=== PATIENT | female | born 1955 | race Caucasian/White ===

== ENCOUNTER → 2017-09-23 | Outpatient (CLI) | payer OTHER ==
[2017-09-23 12:46] LABS: HEMATOCRIT 45.6 % (34.6-47.8); HEMOGLOBIN 15.2 g/dL (11.7-16.4); WHITE BLOOD COUNT 5.5 x10^3/uL (3.4-10)
[2017-09-23 12:53] LABS: ASPARTATE AMINO TRANSFERASE 15 U/L (15-37); BLOOD UREA NITROGEN 19 mg/dL (7-18); C-REACTIVE PROTEIN, QUANT 0.32 mg/dL (0.02-0.49)
[2017-09-25 11:52] LABS: RHEUMATOID FACTOR SCREEN NEGATIVE (NEGATIVE)
[2017-09-25 12:05] LABS: ANA SCREEN NEGATIVE (Negative)
== END | disposition home or self-care (01) ==
LOC: CFH 06:38
PROVIDERS: ATTEND Internal Medicine Cardiovascular Disease
DX: I10 Essential (primary) hypertension (principal); E78.5 Hyperlipidemia, unspecified; J44.9 Chronic obstructive pulmonary disease, unspecified; M06.9 Rheumatoid arthritis, unspecified; G89.4 Chronic pain syndrome; Z92.25 Personal history of immunosuppression therapy; F17.210 Nicotine dependence, cigarettes, uncomplicated
CPT/HCPCS: 36415; 80053; 82306; 84443; 84550; 85025; 86038; 86140; 86200; 86430; 86480; 86803; 87340; 93306

== ENCOUNTER 2017-11-06 21:54 | Emergency (ER) | payer OTHER ==
[~2017-11-06] VITALS: Ht 160 cm; Wt 74.2 kg
[2017-11-06] MEDS ORDERED: ONDANSETRON 2MG/ML, 2ML IVPush ONE (22:30)
[2017-11-06] MEDS ORDERED: PLEASE ENTER HEIGHT AND WEIGHT MC SCH (22:30)
[2017-11-06] MEDS ORDERED: PLEASE ENTER ALLERGIES MC SCH (22:30)
[2017-11-06] MEDS ORDERED: SODIUM CHLORIDE 0.9% 1,000ML IVBOLUS ONE (22:30)
[2017-11-06 22:53] LABS: BASOPHILS # (AUTO) 0.01 x10^3/uL (0-0.1); BASOPHILS % (AUTO) 0 % (0-1); EOSINOPHILS % (AUTO) 0 % (1-7); LYMPHOCYTES # (AUTO) 0.78 x10^3/uL (1-3.4); LYMPHOCYTES % (AUTO) 8 % (22-44); MD SCAN; MEAN CORPUSCULAR HEMOGLOBIN 32.3 pg (27.0-34.8); MEAN CORPUSCULAR VOLUME 97.8 fL (80-100); MEAN PLATELET VOLUME 9.2 fL (7.4-10.4); MONOCYTES # (AUTO) 0.23 x10^3/uL (0.2-0.8); MONOCYTES % (AUTO) 2 % (2-9); NEUTROPHILS # (AUTO) 8.77 x10^3/uL (1.8-6.8); NEUTROPHILS % (AUTO) 90 % (42-75); PLATELET COUNT 146 x10^3/uL (130-400); RED BLOOD COUNT 4.69 x10^6/uL (3.82-5.3); RED CELL DISTRIBUTION WIDTH 14.6 % (9.6-15.2)
[2017-11-06] MEDS ORDERED: ONDANSETRON 2MG/ML, 2ML ONE (23:11)
[2017-11-06] MEDS ORDERED: POTASSIUM CHLORIDE 20 MEQ TAB.ER.PRT PO ONE (23:30)
[2017-11-06] MEDS ORDERED: POTASSIUM CHLORIDE 20 MEQ TAB.ER.PRT ONE (23:41)
[2017-11-07] MEDS ORDERED: OXYcodone/APAP 10/325MG TABLET PO ONE (01:00)
[2017-11-07] MEDS ORDERED: OXYcodone/APAP 10/325MG TABLET ONE (01:07)
[2017-11-07 01:44] VITALS: BP 141/74
== END 2017-11-07 01:53 | disposition home or self-care (01) ==
LOC: ED 11-07 01:25
DX: F11.23 Opioid dependence with withdrawal (principal); E87.6 Hypokalemia
CPT/HCPCS: 36415; 70450; 80047; 85025; 93005; 96361; 96374; 99285; J2405; J7030

== ENCOUNTER 2019-05-14 06:11 | Observation (INO) | payer OTHER, MEDICARE ==
[2019-05-11 13:37] LABS: BASOPHILS # (AUTO) 0.07 x10^3/uL (0-0.1); BASOPHILS % (AUTO) 1 % (0-1); EOSINOPHILS # (AUTO) 0.12 x10^3/uL (0-0.4); EOSINOPHILS % (AUTO) 2 % (1-7); LYMPHOCYTES # (AUTO) 2.67 x10^3/uL (1-3.4); LYMPHOCYTES % (AUTO) 34 % (22-44); MD NO; MONOCYTES # (AUTO) 0.69 x10^3/uL (0.2-0.8); MONOCYTES % (AUTO) 9 % (2-9); NEUTROPHILS # (AUTO) 4.39 x10^3/uL (1.8-6.8); NEUTROPHILS % (AUTO) 55 % (42-75); PLATELET COUNT 294 x10^3/uL (130-400); RED BLOOD COUNT 4.15 x10^6/uL (3.82-5.3)
[2019-05-11 13:38] LABS: INTERNATIONAL NORMALIZED RATIO 0.9 (0.93-1.1); PROTHROMBIN TIME 9.5 Seconds (9.6-11.5)
[2019-05-11 13:40] LABS: ALBUMIN 3.8 g/dL (3.4-5.0); ANION GAP 7 mmol/L (5-15); CALCIUM 8.8 mg/dL (8.5-10.1); CHLORIDE 103 mmol/L (98-107)
[2019-05-11 13:43] LABS: ALANINE AMINOTRANSFERASE 21 U/L (12-78); ALKALINE PHOSPHATASE 123 U/L (45-117); BILIRUBIN,TOTAL 0.3 mg/dL (0.2-1.0); CREATININE 0.78 mg/dL (0.55-1.02); TOTAL PROTEIN 6.7 g/dL (6.4-8.2)
[2019-05-11 13:49] LABS: HEMOGLOBIN A1C 5.6 % (4.2-6.3)
[~2019-05-14] VITALS: Ht 162.6 cm; Wt 75.0 kg
[~2019-05-14 06:11] MED LIST: ALBU18HF INH; ATOR10TA9 PO; CARI350T PO; FLUT15.88 NAS; HYDR-3241 PO; HYDROCODONE PO; LISI-167 PO; OMEP-110 PO; OXYC10TA6 PO
[2019-05-14] MEDS: NS + 20MEQ KCL 1,000 ML IV SCH ×2 (06:16→18:36)
[2019-05-14] MEDS ORDERED: TRANEXAMIC ACID 100 MG/ML, 10ML ONE ×2 (06:21)
[2019-05-14] MEDS ORDERED: ROPIvacaine/PF 0.5%, 20 ML ONE (06:21)
[2019-05-14] MEDS ORDERED: KETOROLAC 60 MG/2 ML ONE (06:21)
[2019-05-14] MEDS ORDERED: SODIUM CHLORIDE 0.9% 50 ML ONE (06:21)
[2019-05-14] MEDS ORDERED: VANCOMYCIN 1,000 MG ONE (06:21)
[2019-05-14] MEDS ORDERED: EPINEPHRINE 1 MG/ML, 1ML ONE (06:22)
[2019-05-14] MEDS ORDERED: DIPHENHYDRAMINE 50 MG CAPSULE PO PRN (06:30)
[2019-05-14] MEDS ORDERED: SCOPOLAMINE PATCH, 1.5MG PATCH.TD72 TD ONE (06:30)
[2019-05-14] MEDS ORDERED: ONDANSETRON 4 MG TABLET PO PRN (06:30)
[2019-05-14] MEDS ORDERED: ALBUTEROL SULFATE INH SCH (06:30)
[2019-05-14] MEDS ORDERED: HYDROcodone/APAP 5/325 TABLET PO PRN (06:30)
[2019-05-14] MEDS: CEFAZOLIN PMX 2GM/50ML 50 ML IVPB SCH ×2 (06:30→15:58)
[2019-05-14] MEDS ORDERED: SENNA/DOCUSATE TABLET PO PRN (06:30)
[2019-05-14] MEDS ORDERED: ONDANSETRON 2MG/ML, 2ML IV PRN ×2 (06:30→08:30)
[2019-05-14] MEDS ORDERED: ACETAMINOPHEN 650 MG/20.3 ML UDC PO PRN (06:30)
[2019-05-14] MEDS ORDERED: ZOLPIDEM 5MG TABLET PO PRN (06:30)
[2019-05-14] MEDS ORDERED: MAGNESIUM HYDROXIDE 8%, 30ML UDC PO PRN (06:30)
[2019-05-14] MEDS ORDERED: BISACODYL 10 MG SUPP PR PRN (06:30)
[2019-05-14] MEDS ORDERED: HYDROmorphone 1 MG/ML, 1ML INJ IV PRN (06:30)
[2019-05-14] MEDS ORDERED: ACETAMINOPHEN 500 MG TABLET PO ONE (07:00)
[2019-05-14] MEDS ORDERED: GABAPENTIN 300 MG CAPSULE PO ONE (07:00)
[2019-05-14] MEDS ORDERED: FENTANYL PF 250 MCG/5ML ONE ×2 (07:00→08:06)
[2019-05-14] MEDS: KETOROLAC 30 MG/1 ML IVPush SCH ×3 (07:00→21:01)
[2019-05-14] MEDS: LACTATED RINGERS 1,000 ML IV SCH ×2 (07:30→11:17)
[2019-05-14] MEDS ORDERED: MIDAZOLAM 1 MG/ML, 2ML ONE (07:36)
[2019-05-14] MEDS ORDERED: CEFAZOLIN 1,000 MG ONE (07:42)
[2019-05-14] MEDS ORDERED: SUCCINYLCHOLINE 20 MG/ML, 10ML ONE (07:42)
[2019-05-14] MEDS ORDERED: ROCURONIUM 10MG/ML,5ML ONE (07:42)
[2019-05-14] MEDS ORDERED: hydrALAzine 20 MG/ML, 1ML ONE (07:42)
[2019-05-14] MEDS ORDERED: NEOSTIGMINE 1 MG/ML, 10ML ONE (07:42)
[2019-05-14] MEDS ORDERED: PROPOFOL 10 MG/ML, 20ML ONE (07:42)
[2019-05-14] MEDS ORDERED: ONDANSETRON 2MG/ML, 2ML ONE (07:42)
[2019-05-14] MEDS ORDERED: LIDOCAINE-MPF 2% ,5ML ONE (07:42)
[2019-05-14] MEDS ORDERED: GLYCOPYRROLATE 0.2MG/1ML, 5ML ONE (07:42)
[2019-05-14] MEDS ORDERED: DEXAMETHASONE 4 MG/ML, 1ML ONE (07:42)
[2019-05-14] MEDS ORDERED: DIAZEPAM 5 MG/ML, 2ML IVPush PRN (08:30)
[2019-05-14] MEDS ORDERED: PROMETHAZINE 25 MG SUPP PR PRN (08:30)
[2019-05-14] MEDS ORDERED: hydrALAzine 20 MG/ML, 1ML IV PRN (08:30)
[2019-05-14] MEDS ORDERED: LABETALOL 5MG/ML, 20ML IV PRN (08:30)
[2019-05-14] MEDS ORDERED: LORazepam 2 MG/ML, 1ML IVPush PRN (08:30)
[2019-05-14] MEDS ORDERED: PROMETHAZINE 25 MG/ML, 1ML IV PRN (08:30)
[2019-05-14] MEDS ORDERED: FENTANYL PF 100 MCG/2ML IV PRN (08:30)
[2019-05-14] MEDS ORDERED: ALBUTEROL/IPRATROPIUM 2.5MG/0.5MG, 3 ML NPPB PRN (08:30)
[2019-05-14] MEDS ORDERED: HYDROmorphone 2 MG/ML, 1ML IVPush PRN (08:30)
[2019-05-14] MEDS ORDERED: ONDANSETRON ODT 8 MG PO PRN (08:30)
[2019-05-14] MEDS ORDERED: OXYcodone 5 MG/5 ML ORAL.SOL UDC PO PRN (08:30)
[2019-05-14] MEDS: DOCUSATE 100 MG CAPSULE PO SCH ×2 (09:00→21:01)
[2019-05-14] MEDS: OMEPRAZOLE 20 MG CAPSULE.DR PO SCH (09:00)
[2019-05-14] MEDS: LISINOPRIL 10 MG TABLET PO SCH (09:00)
[2019-05-14] MEDS: FLUTICASONE PROPIONATE 50 MCG NAS SCH (09:00)
[2019-05-14] MEDS ORDERED: BUPIVACAINE/PF 0.25% ONE (09:04)
[2019-05-14] MEDS ORDERED: ALBUTEROL/IPRATROPIUM 2.5MG/0.5MG, 3 ML ONE (09:23)
[2019-05-14] MEDS ORDERED: OXYcodone 5 MG/5 ML ORAL.SOL UDC ONE (09:28)
[2019-05-14] MEDS ORDERED: HYDROmorphone 2 MG/ML, 1ML ONE ×2 (09:28→17:47)
[2019-05-14] MEDS: MEPERIDINE/PF 25MG/0.5ML IVPush PRN ×2 (09:30→09:55)
[2019-05-14] MEDS ORDERED: MEPERIDINE/PF 25MG/ML,1ML ONE ×2 (09:31→09:54)
[2019-05-14] MEDS: CARISOPRODOL 350 MG TABLET PO SCH (09:50)
[2019-05-14 14:30] VITALS: BP 152/80
[2019-05-14] MEDS: OXYcodone IR 5MG TABLET PO PRN ×2 (15:58→21:01)
[2019-05-14] MEDS: ASPIRIN 81 MG TABLET EC PO SCH (17:49)
[2019-05-14 19:32] VITALS: BP 128/60
[2019-05-14] MEDS ORDERED: ATORVASTATIN 10 MG TABLET PO SCH (21:00)
[2019-05-15] MEDS ORDERED: CEFAZOLIN 2,000 MG in SODIUM CHLORIDE 0.9% 50 ML IV ONE (01:30)
[2019-05-15 01:56] VITALS: BP 128/69
[2019-05-15] MEDS: KETOROLAC 30 MG/1 ML IVPush SCH ×2 (04:10→08:11)
[2019-05-15] MEDS: OXYcodone IR 5MG TABLET PO PRN ×2 (04:19→11:20)
[2019-05-15 04:35] VITALS: BP 135/74
[2019-05-15] MEDS ORDERED: DEXAMETHASONE 4 MG/ML, 1ML IVPush SCH (06:00)
[2019-05-15] MEDS: ASPIRIN 81 MG TABLET EC PO SCH (06:08)
[2019-05-15] MEDS: NS + 20MEQ KCL 1,000 ML IV SCH (06:08)
[2019-05-15] MEDS: DOCUSATE 100 MG CAPSULE PO SCH (08:11)
[2019-05-15] MEDS: FLUTICASONE PROPIONATE 50 MCG NAS SCH (08:12)
[2019-05-15] MEDS: OMEPRAZOLE 20 MG CAPSULE.DR PO SCH (08:12)
[2019-05-15] MEDS: LISINOPRIL 10 MG TABLET PO SCH (08:12)
[2019-05-15] MEDS: CARISOPRODOL 350 MG TABLET PO SCH (08:12)
[2019-05-15 08:25] VITALS: BP 134/79
== END 2019-05-15 12:56 | disposition home or self-care (01) ==
LOC: OUT 06:11 → 4NOR 10:17 → OUT 22:57 → 4NOR 22:58 → DCLOUNGE 05-15 12:38
PROVIDERS: ADMIT Orthopaedic Surgery; ATTEND Orthopaedic Surgery
DX: M17.12 Unilateral primary osteoarthritis, left knee (principal); M21.062 Valgus deformity, not elsewhere classified, left knee; J44.9 Chronic obstructive pulmonary disease, unspecified; I10 Essential (primary) hypertension; G89.29 Other chronic pain; F17.200 Nicotine dependence, unspecified, uncomplicated; F11.20 Opioid dependence, uncomplicated; Z79.899 Other long term (current) drug therapy
CPT/HCPCS: 27447; 36415; 80053; 83036; 85014; 85018; 85025; 85610; 85730; 87081; 87147; 93005; 94640; 96365; 96366; 96375; 96376; 97161; 97166; 97530; C1713; C1776; G0378; J0171; J0330; J0360; J0690; J1100; J1170; J1885; J2175; J2250; J2405; J2704; J2710; J2795; J3010; J3370; J3490; J7120; J7620